=== PATIENT | male | born 1975 ===

== ENCOUNTER 2020-06-09 14:05 | Emergency (ER) | payer SELFPAY ==
[2020-06-09 14:52] VITALS: BP 128/80
--- NOTE | 2020-06-09 16:16 | Emergency Department Report ---
Chief Complaint: Hyperglycemia Stated Complaint: HIGH BLOOD SUGAR - HPI History of Present Illness: 45-year-old -Spanish male presents to the emergency room requesting a refill on his Metformin. Patient states that he has come in from [facility] and does not have a refill on his Metformin. Patient denies any chest pain shortness of breath no increased thirst or increased urination. - Exam Vital Signs: Vital Signs 06/09/20 14:48 Temperature 98.1 F Respiratory 14 Rate Blood Pressure 128/80 Physical Exam: Patient is alert and oriented x3 no acute distress nontoxic in appearance Patient is ambulatory without difficulties. Patient has nonlabored breathing. MSE screening note: Focused history and physical exam performed. Due to findings the following was ordered: 45-year-old -Spanish male presents to the emergency room requesting a refill on his Metformin. Patient states that he has come in from [facility] and does not have a refill on his Metformin. Patient denies any chest pain shortness of breath no increased thirst or increased urination. ED Disposition for MSE Disposition: MED SCREENING EXAM-LEFT Is pt being admited?: No Does the pt Need Aspirin: No Condition: Stable
== END 2020-06-09 16:33 | disposition left against medical advice (07) ==
LOC: ED 14:05
DX: E11.65 Type 2 diabetes mellitus with hyperglycemia (principal); Z53.21 Procedure and treatment not carried out due to patient leaving prior to being seen by health care provider
CPT/HCPCS: 82962